=== PATIENT | male | born 1990 | race Caucasian/White ===

== ENCOUNTER 2020-12-28 12:57 | Emergency (ER) | payer OTHER | END 2020-12-28 13:50 | disposition home or self-care (01) | LOC: JVIRT 12:57 | DX: Z20.822 Contact with and (suspected) exposure to COVID-19 (principal) | CPT/HCPCS: C9803; G2251-GT; Q3014-GT; U0003 ==

== ENCOUNTER 2021-01-28 14:49 | Emergency (ER) | payer OTHER | END 2021-01-28 15:41 | disposition home or self-care (01) | LOC: JVIRT 14:49 | DX: U07.1 COVID-19 (principal) | CPT/HCPCS: C9803; G2251-GT; Q3014-GT; U0003 ==